=== PATIENT | male | born 1985 | race African-American/Black ===

== ENCOUNTER 2017-01-24 00:12 | Emergency (ER) | payer OTHER ==
[2017-01-24 00:40] VITALS: BP 149/96; PULSE 77; TEMP 97.9; BMI 24.3
[2017-01-24] MEDS ORDERED: IBUPROFEN 400 MG TABLET (FP) PO ONE ×2 (00:43→00:57)
[2017-01-24] MEDS ORDERED: PENICILLIN V POTASSIUM 500 MG TABLET PO ONE (00:43)
--- NOTE | 2017-01-24 00:43 | PDOC ---
History of Present Illness - General History Source: Patient Exam Limitations: No Limitations - History of Present Illness Initial Comments: The patient is a 31 yo M who presents with upper Upper R sided lip and right above the lip swelling for the last 2 days. Patient reports he had dental issues in the past. The patient reports his R incisor was pushed back and he subsequently has had issues with that tooth. The patient admits that for the last couple of days the teeth in that area have had pain and sensitivities. The patient also endorses a mild headache. The patient denies chest pain, palpitations and lightheadedness. Allergies NKDA Social Hx: Smoker <AdolfoFela - Last Filed: 01/24/17 00:49> - General History Source: Patient <TerrenceElvis recio - Last Filed: 01/24/17 00:55> - General Chief Complaint: Edema Stated Complaint: FACE SWELLING Time Seen by Provider: 01/24/17 00:40 Past History <Fela Mata - Last Filed: 01/24/17 00:49> - Psycho/Social/Smoking Cessation Hx Suicidal Ideation: No Smoking History: Current every day smoker Information on smoking cessation initiated: No <Elvis Dave - Last Filed: 01/24/17 00:55> - Past Medical History Allergies/Adverse Reactions: Allergies Allergy/AdvReac Type Severity Reaction Status Date / Time No Known Allergies Allergy Verified 01/24/17 00:38 Home Medications: Ambulatory Orders Ibuprofen 800 mg PO TID #30 tablet 01/24/17 Penicillin V Potassium [Pen Vee K -] 500 mg PO TID #30 tablet 01/24/17 Review of Systems - Review of Systems Able to Perform ROS?: Yes Comments:: CONSTITUTIONAL: Absent: fever, chills, diaphoresis, generalized weakness, malaise, loss of appetite HEENT: +facial edema, headache Absent: rhinorrhea, nasal congestion, throat pain, throat swelling, difficulty swallowing, mouth swelling, ear pain, eye pain, visual Changes CARDIOVASCULAR: Absent: chest pain, syncope, palpitations, irregular heart rate, lightheadedness , peripheral edema RESPIRATORY: Absent: cough, shortness of breath, dyspnea with exertion, orthopnea, wheezing, stridor, hemoptysis GASTROINTESTINAL: Absent: abdominal pain, abdominal distension, nausea, vomiting, diarrhea, constipation, melena, hematochezia GENITOURINARY: Absent: dysuria, frequency, urgency, hesitancy, hematuria, flank pain, genital pain MUSCULOSKELETAL: Absent: myalgia, arthralgia, joint swelling SKIN: Absent: rash, itching, pallor NEUROLOGIC: Absent: headache, focal weakness or paresthesias, dizziness, unsteady gait, seizure, mental status changes, bladder or bowel incontinence PSYCHIATRIC: Absent: anxiety, depression, suicidal or homicidal ideation, hallucinations. <Fela Mata - Last Filed: 01/24/17 00:49> *Physical Exam - Vital Signs Last Vital Signs Temp Pulse Resp BP Pulse Ox 97.9 F 77 18 149/96 99 01/24/17 00:39 01/24/17 00:39 01/24/17 00:39 01/24/17 00:39 01/24/17 00:39 - Physical Exam Comments: GENERAL: Well developed, well nourished. Awake and alert. No acute distress. HEENT: R incisor is displaced posteriorly as compared to the rest of his teeth. Tenderness and swelling to the gingiva surround R incisor and the R side of the upper lip and just above the lip. Normocephalic, atraumatic. PERRLA, EOMI. No conjunctival pallor. Sclera are non-icteric. Moist mucous membranes. Oropharynx is clear. NECK: Supple. Full ROM. No JVD. Carotid pulses 2+ and symmetric, without bruits. No thyromegaly. No lymphadenopathy. CARDIOVASCULAR: Regular rate and rhythm. No murmurs, rubs, or gallops. Distal pulses are 2+ and symmetric. PULMONARY: No evidence of respiratory distress. Lungs clear to auscultation bilaterally. No wheezing, rales or rhonchi. ABDOMINAL: Soft. Non-tender. Non-distended. No rebound or guarding. No organomegaly. Normoactive bowel sounds. MUSCULOSKELETAL Normal range of motion at all joints. No bony deformities or tenderness. No CVA tenderness. EXTREMITIES: No cyanosis. No clubbing. No edema. No calf tenderness. SKIN: Warm and dry. Normal capillary refill. No rashes. No jaundice. NEUROLOGICAL: Alert, awake, appropriate. Cranial nerves 2-12 intact. No deficits to light touch and temperature in face, upper extremities and lower extremities. No motor deficits in the in face, upper extremities and lower extremities. Normoreflexic in the upper and lower extremities. Normal speech. Toes are down-going bilaterally. Gait is normal without ataxia. PSYCHIATRIC: Cooperative. Good eye contact. Appropriate mood and affect. <Fela Mata - Last Filed: 01/24/17 00:49> - Vital Signs Last Vital Signs Temp Pulse Resp BP Pulse Ox 97.9 F 77 18 149/96 99 01/24/17 00:39 01/24/17 00:39 01/24/17 00:39 01/24/17 00:39 01/24/17 00:39 <Elvis Dave - Last Filed: 01/24/17 00:55> Medical Decision Making - Medical Decision Making 01/24/17 00:55 Dr. Dave: The scribe's documentation has been prepared under my direction and personally reviewed by me in its entirery. I confirm that the note above accurately reflects all work, treatment, procedures, and medical decision making performed by me. <Elvis Dave - Last Filed: 01/24/17 00:55> *DC/Admit/Observation/Transfer - Attestations Scribe Attestion: Documentation prepared by Fela Mata, acting as medical educator for Elvis Dave MD/DO. <Fela Mata - Last Filed: 01/24/17 00:49> - Discharge Dispostion Admit: No <Elvis Dave - Last Filed: 01/24/17 00:55> Diagnosis at time of Disposition: Facial swelling, Tooth infection - Discharge Dispostion Disposition: HOME - Prescriptions Prescriptions: Ibuprofen 800 mg PO TID #30 tablet Penicillin V Potassium [Pen Vee K -] 500 mg PO TID #30 tablet - Patient Instructions Printed Discharge Instructions: DI for Tooth Decay Additional Instructions: take medication as directed. Make appointment with a dentist to eliminate problem as soon as possible.
== END 2017-01-24 01:09 | disposition home or self-care (01) ==
LOC: JER 00:12
DX: K04.7 Periapical abscess without sinus (principal)
CPT/HCPCS: 99281-25